=== PATIENT | female | born 1960 | race Caucasian/White ===

== ENCOUNTER 2022-06-08 15:20 | Outpatient (CLI) | payer OTHER ==
--- NOTE | 2022-06-08 16:42 | XRAY Report ---
PROCEDURE: Shoulder 3 View RT INDICATIONS: CONTUSION OF R SHOULDER TECHNIQUE: 3 views of the shoulder were acquired. COMPARISON: None. FINDINGS: Bones: There is a mildly displaced fracture seen involving the right humeral head. No additional fracture is seen. No dislocation. Contact No suspicious lytic or blastic lesions are se en. Soft tissues: No suspicious soft tissue calcifications. The visualized lung demonstrates a normal a ppearance. IMPRESSION: Mildly displaced fracture of the right humeral head. Reviewed by: Viral Brady MD on 06/08/2022 3:41 PM [place] Approved by: Viral Brady MD on 06/08/2022 3:41 PM [facility] Station ID: [id number]
== END 2022-06-08 23:59 | disposition home or self-care (01) ==
LOC: DI.N 15:20
PROVIDERS: ATTEND Physician Assistant
DX: S42.291A Other displaced fracture of upper end of right humerus, initial encounter for closed fracture (principal)